=== PATIENT | male | born 1980 | race Caucasian/White ===

== ENCOUNTER 2017-11-01 12:42 | Emergency (ER) | payer OTHER ==
[~2017-11-01] VITALS: Ht 165.1 cm; Wt 73.9 kg
[~2017-11-01 12:42] MED LIST: AMOX1TAB12 PO
== END 2017-11-01 21:43 | disposition home or self-care (01) ==
LOC: ER 12:42
DX: B34.9 Viral infection, unspecified (principal); K29.70 Gastritis, unspecified, without bleeding